=== PATIENT | female | born 1955 | race Two or more races ===

== ENCOUNTER 2025-06-25 01:33 | Emergency (ER) | payer MEDICARE, MEDICAID ==
[~2025-06-25] VITALS: Ht 157.5 cm; Wt 67.1 kg
[2025-06-25 01:56] VITALS: BP 156/93; TEMP 98.7; O2SAT 96
[2025-06-25] MEDS ORDERED: PRED20TA PO (02:06)
[2025-06-25] MEDS ORDERED: HYDR-4303 PO (02:06)
[2025-06-25] MEDS ORDERED: VALA10002 PO (02:06)
[2025-06-25] MEDS ORDERED: HYDROCODONE/APAP 5/325MG TABLET ONE (02:11)
[2025-06-25] MEDS: HYDROCODONE/APAP 5/325MG TABLET PO ONE (02:15)
[2025-06-25] MEDS: VALACYCLOVIR HCL 500 MG TABLET PO ONE (02:15)
== END 2025-06-25 02:16 | disposition home or self-care (01) ==
LOC: ER 01:37
DX: B02.9 Zoster without complications (principal); R21 Rash and other nonspecific skin eruption; M79.661 Pain in right lower leg
CPT/HCPCS: 99283; J7512